=== PATIENT | female | born 1950 | race Caucasian/White ===

== ENCOUNTER 2016-12-27 10:48 | Emergency (ER) | payer MEDICARE, MEDICAID ==
[~2016-12-27] VITALS: Ht 172.7 cm; Wt 71.0 kg
[~2016-12-27 10:48] MED LIST: FLUT1AER PO; PARO10TA89 PO
[2016-12-27 11:02] LABS: GLUCOSE,POINT OF CARE 125 MG/DL (70-110)
[2016-12-27 11:25] VITALS: BP 158/95
[2017-01-01] MEDS ORDERED: AZIT250T6 PO (18:52)
[2017-01-01] MEDS ORDERED: METO50TA12 PO (18:52)
== END 2016-12-27 13:26 | disposition home or self-care (01) ==
LOC: EMS 10:51
DX: F25.9 Schizoaffective disorder, unspecified (principal); E11.9 Type 2 diabetes mellitus without complications; I10 Essential (primary) hypertension; I25.2 Old myocardial infarction; F32.9 Major depressive disorder, single episode, unspecified; F17.210 Nicotine dependence, cigarettes, uncomplicated; Z86.73 Personal history of transient ischemic attack (TIA), and cerebral infarction without residual deficits; Z88.8 Allergy status to other drugs, medicaments and biological substances; Z88.5 Allergy status to narcotic agent; Z91.013 Allergy to seafood
CPT/HCPCS: 82962; 99284

== ENCOUNTER 2016-12-27 13:24 | Emergency (ER) | payer MEDICARE, MEDICAID ==
[~2016-12-27] VITALS: Ht 172.7 cm; Wt 76.4 kg
[2016-12-27 13:34] VITALS: BP 138/99
[2016-12-27] MEDS ORDERED: HydrOXYzine PAMOATE 25 MG CAPSULE PO ONE (16:15)
[2017-01-01] MEDS ORDERED: METO50TA12 PO (18:52)
[2017-01-01] MEDS ORDERED: AZIT250T6 PO (18:52)
== END 2016-12-27 17:28 | disposition home or self-care (01) ==
LOC: EMS 13:26
DX: Z20.7 Contact with and (suspected) exposure to pediculosis, acariasis and other infestations (principal); F41.9 Anxiety disorder, unspecified; M79.7 Fibromyalgia; E11.9 Type 2 diabetes mellitus without complications; I10 Essential (primary) hypertension; I25.2 Old myocardial infarction; F17.210 Nicotine dependence, cigarettes, uncomplicated; Z59.0 Homelessness; Z88.6 Allergy status to analgesic agent; Z91.013 Allergy to seafood; Z88.8 Allergy status to other drugs, medicaments and biological substances; Z86.73 Personal history of transient ischemic attack (TIA), and cerebral infarction without residual deficits
CPT/HCPCS: 99282

== ENCOUNTER 2017-01-01 13:45 | Inpatient (IN) | payer MEDICARE, MEDICAID ==
[~2017-01-01] VITALS: Ht 172.7 cm; Wt 62.4 kg
[2017-01-01 15:18] VITALS: BP 134/76
[2017-01-01 18:34] VITALS: BP 122/71
[2017-01-01] MEDS: LORazepam 2 MG TABLET PO PRN (18:37)
[2017-01-01] MEDS ORDERED: RISP1 PO (18:52)
[2017-01-01] MEDS ORDERED: NITR.4 SL (18:52)
[2017-01-01] MEDS ORDERED: TRAZ150 PO (18:52)
[2017-01-01] MEDS ORDERED: MULT-1203 PO (18:52)
[2017-01-01] MEDS ORDERED: CITA10TA68 PO (18:52)
[2017-01-01] MEDS ORDERED: BIMA12.5OS OD (18:52)
[2017-01-01] MEDS ORDERED: ASPI-1182 PO (18:52)
[2017-01-01] MEDS ORDERED: AZIT250T9 PO (18:52)
[2017-01-01] MEDS ORDERED: ALPR0.5T8 PO (18:52)
[2017-01-01] MEDS ORDERED: HYDR-3110 PO (18:52)
[2017-01-01] MEDS ORDERED: IPRA4AER IH (18:52)
[2017-01-01] MEDS ORDERED: LANS30 PO (18:52)
[2017-01-01] MEDS ORDERED: BRIM15OS OD (18:52)
[2017-01-01] MEDS ORDERED: DEXA4 PO (18:52)
[2017-01-01] MEDS ORDERED: METO-558 PO (18:52)
[2017-01-01] MEDS ORDERED: LIDO700A15 TP (18:52)
[2017-01-01 19:17] LABS: GLUCOSE COMMENT 1 Doctor Notified; GLUCOSE,POINT OF CARE 105 MG/DL (70-110)
[2017-01-01] MEDS ORDERED: NITROGLYCERIN 0.4 MG SUBLINGUAL TABLET #25 SL PRN (20:45)
[2017-01-01] MEDS ORDERED: PETROLATUM,WHITE 71 GM JELLY TP PRN (20:45)
[2017-01-02 00:37] VITALS: BP 110/72
[2017-01-02] MEDS: LANSOPRAZOLE 30 MG CAPSULE PO SCH (06:19)
[2017-01-02] MEDS: ALBUTEROL SULFATE/IPRATROPIUM 100-20 MCG/SPRAY 4 GM INHALER IH SCH ×4 (08:27→20:39)
[2017-01-02 08:31] VITALS: BP 99/59
[2017-01-02] MEDS: ASPIRIN 81 MG CHEWABLE TABLET PO SCH (08:34)
[2017-01-02] MEDS: BRIMONIDINE TARTRATE 0.1% 5 ML OPHTHALMIC SOLUTION OD SCH ×3 (08:42→17:00)
[2017-01-02] MEDS: METOPROLOL TARTRATE 50 MG TABLET PO SCH ×2 (08:43→09:36)
[2017-01-02] MEDS: LIDOCAINE HCL 5% TRANSDERMAL PATCH TD SCH (08:43)
[2017-01-02 08:48] LABS: BASOPHILS # (AUTO) 0.03 K/uL (0.00-0.20); BASOPHILS % (AUTO) 0.5 % (0.0-2.0); EOSINOPHILS # (AUTO) 0.15 K/uL (0.00-0.70); EOSINOPHILS % (AUTO) 2.62 % (1.0-6.0); HEMATOCRIT 41.4 % (36-46); HEMOGLOBIN 13.7 g/dL (12.0-16.0); LYMPHOCYTES # (AUTO) 1.5 K/uL (1.0-4.8); LYMPHOCYTES % (AUTO) 26.1 % (22.0-44.0); MEAN CORPUSCULAR HEMOGLOBIN 28.2 pg (26.0-34.0); MEAN CORPUSCULAR HGB CONC 33.1 G/dL (31.0-37.0); MEAN CORPUSCULAR VOLUME 85 fL (80-100); MONOCYTES # (AUTO) 0.5 K/uL (0.1-1.0); NEUTROPHILS # (AUTO) 3.7 K/uL (1.8-7.7); NEUTROPHILS % (AUTO) 61.8 % (40.0-70.0); PLATELET COUNT (AUTO) 329 K/uL (150-450); RED BLOOD CELL COUNT(AUTO) 4.85 MIL/uL (4.00-5.20); RED CELL DISTRIBUTION WIDTH 13.5 % (11.5-14.5); WHITE BLOOD COUNT (AUTO) 5.9 K/uL (4.5-11.0)
[2017-01-02] MEDS ORDERED: NICOTINE 14 MG/24 HOUR PATCH TD SCH (09:00)
[2017-01-02] MEDS ORDERED: AZITHROMYCIN 250 MG TABLET PO ONE (09:00)
[2017-01-02] MEDS: CITALOPRAM HYDROBROMIDE 10 MG TABLET PO SCH (09:15)
[2017-01-02 09:30] VITALS: BP 128/88
[2017-01-02] MEDS: LORazepam 2 MG TABLET PO PRN ×2 (09:36→19:33)
[2017-01-02 09:41] LABS: ALANINE AMINOTRANSFERASE 18 U/L (12-78); ALBUMIN 3.1 g/dL (3.4-5.0); ANION GAP 8 mmol/L (8-16); ASPARTATE AMINOTRANSFERASE 13 U/L (15-37); BILIRUBIN,TOTAL 0.3 mg/dL (0.1-1.0); CALCIUM, TOTAL 8.7 mg/dL (8.8-10.5); CARBON DIOXIDE 26 mmol/L (22-29); CHLORIDE 108 mmol/L (98-107); CHOL/HDL RATIO 3.1 (3.9-5.7); CREATININE 0.63 mg/dL (0.60-1.30); GLOMERULAR FILTR. RATE CALC > 60 mL/min (>60); POTASSIUM 4.5 mmol/L (3.5-5.1); SODIUM SERUM 142 mmol/L (136-145); THYROID STIMULATING HORMONE 0.59 uIU/mL (0.36-3.74); UREA NITROGEN, BLOOD 10 mg/dL (7-18)
[2017-01-02 16:13] VITALS: BP 113/72
[2017-01-02] MEDS: ALBUTEROL SULFATE HFA 90 MCG/PUFF 8 GM INHALER IH PRN (19:12)
[2017-01-02 19:24] VITALS: BP 112/78
[2017-01-02] MEDS: TraMADol HCL 50 MG TABLET PO PRN (19:33)
[2017-01-02] MEDS: TraZODone HCL 150 MG TABLET PO SCH (20:40)
[2017-01-02] MEDS: -LIDODERM PATCH NOTE- MISC SCH ×2 (20:40)
[2017-01-02] MEDS: BIMATOPROST 0.01% 2.5 ML OPHTHALMIC SOLUTION OD SCH (20:42)
[2017-01-02] MEDS ORDERED: RisperiDONE 1 MG TABLET PO SCH (21:00)
[2017-01-03] MEDS: LANSOPRAZOLE 30 MG CAPSULE PO SCH (06:13)
[2017-01-03 06:35] VITALS: BP 102/51
[2017-01-03] MEDS ORDERED: BENZOCAINE/MENTHOL LOZENGE PO PRN (06:45)
[2017-01-03 08:15] VITALS: BP 98/63
[2017-01-03] MEDS: METOPROLOL TARTRATE 50 MG TABLET PO SCH (09:00)
[2017-01-03] MEDS: LIDOCAINE HCL 5% TRANSDERMAL PATCH TD SCH (09:00)
[2017-01-03] MEDS: BRIMONIDINE TARTRATE 0.1% 5 ML OPHTHALMIC SOLUTION OD SCH ×3 (09:00→16:38)
[2017-01-03] MEDS: CITALOPRAM HYDROBROMIDE 10 MG TABLET PO SCH (09:00)
[2017-01-03] MEDS: AZITHROMYCIN 250 MG TABLET PO SCH (09:01)
[2017-01-03] MEDS: ASPIRIN 81 MG CHEWABLE TABLET PO SCH (09:01)
[2017-01-03] MEDS: GuaiFENesin/D-METHORPHAN [SUGAR-FREE] 200-20MG/10 ML SYRUP UDCUP PO SCH ×3 (09:02→18:08)
[2017-01-03] MEDS: ALBUTEROL SULFATE/IPRATROPIUM 100-20 MCG/SPRAY 4 GM INHALER IH SCH ×4 (09:07→20:33)
[2017-01-03 14:35] VITALS: BP 100/74
[2017-01-03] MEDS: TraMADol HCL 50 MG TABLET PO PRN ×2 (14:38→19:34)
[2017-01-03] MEDS: LORazepam 2 MG TABLET PO PRN (15:59)
[2017-01-03 16:17] VITALS: BP 120/75
[2017-01-03 19:34] VITALS: BP 112/70
[2017-01-03] MEDS: TraZODone HCL 150 MG TABLET PO SCH (20:32)
[2017-01-03] MEDS: RisperiDONE 2 MG TABLET PO SCH (20:32)
[2017-01-03] MEDS: BIMATOPROST 0.01% 2.5 ML OPHTHALMIC SOLUTION OD SCH (20:33)
[2017-01-03] MEDS: -LIDODERM PATCH NOTE- MISC SCH ×2 (20:34)
[2017-01-04] VITALS (7 sets, daily range): BP systolic 100–113; BP diastolic 60–76
[2017-01-04] MEDS: GuaiFENesin/D-METHORPHAN [SUGAR-FREE] 200-20MG/10 ML SYRUP UDCUP PO SCH ×4 (06:15→18:02)
[2017-01-04] MEDS: LANSOPRAZOLE 30 MG CAPSULE PO SCH (06:15)
[2017-01-04] MEDS: TraMADol HCL 50 MG TABLET PO PRN ×3 (06:16→21:39)
[2017-01-04] MEDS: LORazepam 2 MG TABLET PO PRN ×2 (06:26→13:14)
[2017-01-04] MEDS: LIDOCAINE HCL 5% TRANSDERMAL PATCH TD SCH (09:00)
[2017-01-04] MEDS ORDERED: CITALOPRAM HYDROBROMIDE 10 MG TABLET PO SCH (09:00)
[2017-01-04] MEDS: METOPROLOL TARTRATE 25 MG TABLET PO SCH (09:00)
[2017-01-04] MEDS: BRIMONIDINE TARTRATE 0.1% 5 ML OPHTHALMIC SOLUTION OD SCH ×3 (09:00→16:48)
[2017-01-04] MEDS: ALBUTEROL SULFATE/IPRATROPIUM 100-20 MCG/SPRAY 4 GM INHALER IH SCH ×4 (09:55→20:37)
[2017-01-04] MEDS: ASPIRIN 81 MG CHEWABLE TABLET PO SCH (09:55)
[2017-01-04] MEDS: AZITHROMYCIN 250 MG TABLET PO SCH (09:56)
[2017-01-04 11:01] LABS: GLUCOSE,POINT OF CARE 95 MG/DL (70-110)
[2017-01-04] MEDS: RisperiDONE 2 MG TABLET PO SCH (20:38)
[2017-01-04] MEDS: -LIDODERM PATCH NOTE- MISC SCH ×2 (20:38)
[2017-01-04] MEDS: BIMATOPROST 0.01% 2.5 ML OPHTHALMIC SOLUTION OD SCH (20:38)
[2017-01-04] MEDS: TraZODone HCL 150 MG TABLET PO SCH (20:38)
[2017-01-05] MEDS: GuaiFENesin/D-METHORPHAN [SUGAR-FREE] 200-20MG/10 ML SYRUP UDCUP PO SCH ×4 (00:17→19:00)
[2017-01-05 01:33] VITALS: BP 100/61
[2017-01-05 05:55] VITALS: BP 106/68
[2017-01-05] MEDS: LANSOPRAZOLE 30 MG CAPSULE PO SCH (06:20)
[2017-01-05] MEDS: BRIMONIDINE TARTRATE 0.1% 5 ML OPHTHALMIC SOLUTION OD SCH ×3 (09:00→17:00)
[2017-01-05] MEDS: METOPROLOL TARTRATE 25 MG TABLET PO SCH (09:00)
[2017-01-05] MEDS: LIDOCAINE HCL 5% TRANSDERMAL PATCH TD SCH (09:00)
[2017-01-05 09:08] VITALS: BP 101/65
[2017-01-05] MEDS: AZITHROMYCIN 250 MG TABLET PO SCH (09:23)
[2017-01-05] MEDS: ASPIRIN 81 MG CHEWABLE TABLET PO SCH (09:23)
[2017-01-05] MEDS: ALBUTEROL SULFATE/IPRATROPIUM 100-20 MCG/SPRAY 4 GM INHALER IH SCH ×4 (09:24→20:22)
[2017-01-05] MEDS: CITALOPRAM HYDROBROMIDE 20 MG TABLET PO SCH (09:24)
[2017-01-05 09:35] VITALS: BP 113/76
[2017-01-05] MEDS: ALBUTEROL SULFATE HFA 90 MCG/PUFF 8 GM INHALER IH PRN (09:41)
[2017-01-05] MEDS: TraMADol HCL 50 MG TABLET PO PRN (16:32)
[2017-01-05 16:49] VITALS: BP 108/60
[2017-01-05] MEDS: LORazepam 2 MG TABLET PO PRN (19:50)
[2017-01-05] MEDS: TraZODone HCL 150 MG TABLET PO SCH (20:17)
[2017-01-05] MEDS: RisperiDONE 2 MG TABLET PO SCH (20:17)
[2017-01-05] MEDS: BIMATOPROST 0.01% 2.5 ML OPHTHALMIC SOLUTION OD SCH (20:25)
[2017-01-05] MEDS: -LIDODERM PATCH NOTE- MISC SCH ×2 (20:25)
[2017-01-05] MEDS ORDERED: IPRATROPIUM BROMIDE 0.5 MG/2.5 ML NEB SOLUTION NEB PRN (23:00)
[2017-01-06] MEDS: GuaiFENesin/D-METHORPHAN [SUGAR-FREE] 200-20MG/10 ML SYRUP UDCUP PO SCH ×3 (00:45→06:00)
[2017-01-06] MEDS: LANSOPRAZOLE 30 MG CAPSULE PO SCH (06:33)
[2017-01-06] MEDS: BRIMONIDINE TARTRATE 0.1% 5 ML OPHTHALMIC SOLUTION OD SCH (09:00)
[2017-01-06] MEDS: LIDOCAINE HCL 5% TRANSDERMAL PATCH TD SCH (09:00)
[2017-01-06] MEDS: CITALOPRAM HYDROBROMIDE 20 MG TABLET PO SCH (09:00)
[2017-01-06] MEDS: ASPIRIN 81 MG CHEWABLE TABLET PO SCH (09:14)
[2017-01-06] MEDS: ALBUTEROL SULFATE/IPRATROPIUM 100-20 MCG/SPRAY 4 GM INHALER IH SCH ×4 (09:19→20:01)
[2017-01-06] MEDS: AZITHROMYCIN 250 MG TABLET PO SCH (09:20)
[2017-01-06] MEDS: LORazepam 2 MG TABLET PO PRN (09:43)
[2017-01-06 09:44] VITALS: BP 109/67
[2017-01-06] MEDS: TraMADol HCL 50 MG TABLET PO PRN ×2 (09:44→17:07)
[2017-01-06] MEDS ORDERED: GuaiFENesin/D-METHORPHAN [SUGAR-FREE] 200-20MG/10 ML SYRUP UDCUP PO PRN (12:00)
[2017-01-06] MEDS ORDERED: ACETAMINOPHEN 325 MG TABLET PO PRN (12:00)
[2017-01-06 16:00] VITALS: BP 117/66
[2017-01-06] MEDS: RisperiDONE 2 MG TABLET PO SCH (20:01)
[2017-01-06] MEDS: TraZODone HCL 150 MG TABLET PO SCH (20:01)
[2017-01-06] MEDS: ZOLPIDEM TARTRATE 10 MG TABLET PO PRN (20:02)
[2017-01-07] MEDS: LORazepam 2 MG TABLET PO PRN ×2 (05:46→11:13)
[2017-01-07 06:22] VITALS: BP 111/66
[2017-01-07] MEDS: LANSOPRAZOLE 30 MG CAPSULE PO SCH (07:07)
[2017-01-07] MEDS: MONTELUKAST SODIUM 10 MG TABLET PO SCH (09:15)
[2017-01-07] MEDS: CITALOPRAM HYDROBROMIDE 20 MG TABLET PO SCH (09:15)
[2017-01-07] MEDS: ASPIRIN 81 MG CHEWABLE TABLET PO SCH (09:15)
[2017-01-07] MEDS: ALBUTEROL SULFATE/IPRATROPIUM 100-20 MCG/SPRAY 4 GM INHALER IH SCH ×4 (09:15→20:19)
[2017-01-07 11:22] VITALS: BP 90/53
[2017-01-07] MEDS ORDERED: BUDESONIDE 0.5 MG/2 ML NEB SOLUTION NEB SCH (16:30)
[2017-01-07 18:00] VITALS: BP 104/74
[2017-01-07] MEDS: IPRATROPIUM BROMIDE 0.5 MG/2.5 ML NEB SOLUTION NEB SCH ×2 (19:30→21:42)
[2017-01-07] MEDS: ALBUTEROL SULFATE 2.5 MG/0.5 ML NEB SOLUTION NEB SCH ×2 (19:30→21:42)
[2017-01-07] MEDS: RisperiDONE 2 MG TABLET PO SCH (20:18)
[2017-01-07] MEDS: TraZODone HCL 150 MG TABLET PO SCH (20:18)
[2017-01-07] MEDS: BUDESONIDE 0.5 MG/2 ML NEB SOLUTION NEB SCH (21:42)
[2017-01-07 23:30] VITALS: BP 99/61
[2017-01-07] MEDS: ZOLPIDEM TARTRATE 10 MG TABLET PO PRN (23:39)
[2017-01-08] MEDS: LANSOPRAZOLE 30 MG CAPSULE PO SCH (06:45)
[2017-01-08 09:15] VITALS: BP 87/62
[2017-01-08] MEDS: CITALOPRAM HYDROBROMIDE 20 MG TABLET PO SCH (09:47)
[2017-01-08] MEDS: ASPIRIN 81 MG CHEWABLE TABLET PO SCH (09:47)
[2017-01-08] MEDS: MONTELUKAST SODIUM 10 MG TABLET PO SCH (09:47)
[2017-01-08] MEDS: ALBUTEROL SULFATE/IPRATROPIUM 100-20 MCG/SPRAY 4 GM INHALER IH SCH ×4 (09:47→21:08)
[2017-01-08] MEDS: IPRATROPIUM BROMIDE 0.5 MG/2.5 ML NEB SOLUTION NEB SCH ×4 (09:48→21:00)
[2017-01-08] MEDS: BUDESONIDE 0.5 MG/2 ML NEB SOLUTION NEB SCH ×2 (09:48→21:00)
[2017-01-08] MEDS: ALBUTEROL SULFATE 2.5 MG/0.5 ML NEB SOLUTION NEB SCH ×4 (09:49→21:00)
[2017-01-08] MEDS: IBUPROFEN 600 MG TABLET PO PRN (09:51)
[2017-01-08 10:50] VITALS: BP 106/67
[2017-01-08] MEDS: DiphenhydrAMINE HCL 25 MG CAPSULE PO PRN (12:39)
[2017-01-08] MEDS: LORazepam 2 MG TABLET PO PRN (12:40)
[2017-01-08] MEDS ORDERED: MethylPREDNISolone SOD SUCC 40 MG/ML VIAL IVP SCH (18:00)
[2017-01-08] MEDS: TraZODone HCL 150 MG TABLET PO SCH (20:37)
[2017-01-08] MEDS: RisperiDONE 2 MG TABLET PO SCH (20:37)
[2017-01-08] MEDS ORDERED: PERMETHRIN 5% 60 GM CREAM TP ONE (21:00)
[2017-01-08 21:16] VITALS: BP 105/66
[2017-01-09] MEDS: LANSOPRAZOLE 30 MG CAPSULE PO SCH (06:40)
[2017-01-09 08:14] VITALS: BP 111/72
[2017-01-09] MEDS ORDERED: PERMETHRIN 5% 60 GM CREAM TP ONE ×2 (09:00→21:00)
[2017-01-09] MEDS: CITALOPRAM HYDROBROMIDE 20 MG TABLET PO SCH (09:27)
[2017-01-09] MEDS: LORazepam 2 MG TABLET PO PRN ×2 (09:27→20:20)
[2017-01-09] MEDS: ASPIRIN 81 MG CHEWABLE TABLET PO SCH (09:27)
[2017-01-09] MEDS: MONTELUKAST SODIUM 10 MG TABLET PO SCH (09:27)
[2017-01-09] MEDS: ALBUTEROL SULFATE/IPRATROPIUM 100-20 MCG/SPRAY 4 GM INHALER IH SCH ×4 (09:28→20:19)
[2017-01-09] MEDS: LORATADINE 10 MG TABLET PO SCH (09:28)
[2017-01-09] MEDS: IPRATROPIUM BROMIDE 0.5 MG/2.5 ML NEB SOLUTION NEB SCH ×4 (09:39→20:46)
[2017-01-09] MEDS: ALBUTEROL SULFATE 2.5 MG/0.5 ML NEB SOLUTION NEB SCH ×4 (09:39→20:46)
[2017-01-09] MEDS: BUDESONIDE 0.5 MG/2 ML NEB SOLUTION NEB SCH ×2 (09:39→20:46)
[2017-01-09] MEDS: OXYMETAZOLINE HCL 0.05% 15 ML NASAL SPRAY NASAL SCH ×2 (11:00→17:02)
[2017-01-09] MEDS: ALBUTEROL SULFATE 2.5 MG/0.5 ML NEB SOLUTION NEB PRN (16:05)
[2017-01-09] MEDS: TraMADol HCL 50 MG TABLET PO PRN (17:01)
[2017-01-09 17:03] VITALS: BP 119/77
[2017-01-09] MEDS: DiphenhydrAMINE HCL 25 MG CAPSULE PO PRN (20:19)
[2017-01-09] MEDS: RisperiDONE 2 MG TABLET PO SCH (20:20)
[2017-01-09] MEDS: TraZODone HCL 150 MG TABLET PO SCH (20:20)
[2017-01-10 06:12] LABS: GLUCOSE,POINT OF CARE 104 MG/DL (70-110)
[2017-01-10] MEDS: LANSOPRAZOLE 30 MG CAPSULE PO SCH (06:42)
[2017-01-10 08:48] VITALS: BP 95/59
[2017-01-10] MEDS: MONTELUKAST SODIUM 10 MG TABLET PO SCH (09:02)
[2017-01-10] MEDS: ASPIRIN 81 MG CHEWABLE TABLET PO SCH (09:02)
[2017-01-10] MEDS: DiphenhydrAMINE HCL 25 MG CAPSULE PO PRN (09:02)
[2017-01-10] MEDS: LORATADINE 10 MG TABLET PO SCH (09:02)
[2017-01-10] MEDS: PARoxetine HCL 20 MG TABLET PO SCH (09:07)
[2017-01-10] MEDS: OXYMETAZOLINE HCL 0.05% 15 ML NASAL SPRAY NASAL SCH ×2 (09:08→16:29)
[2017-01-10] MEDS: ALBUTEROL SULFATE/IPRATROPIUM 100-20 MCG/SPRAY 4 GM INHALER IH SCH ×4 (09:08→20:00)
[2017-01-10] MEDS: BUDESONIDE 0.5 MG/2 ML NEB SOLUTION NEB SCH ×2 (10:01→21:38)
[2017-01-10] MEDS: ALBUTEROL SULFATE 2.5 MG/0.5 ML NEB SOLUTION NEB SCH ×4 (10:01→21:37)
[2017-01-10] MEDS: IPRATROPIUM BROMIDE 0.5 MG/2.5 ML NEB SOLUTION NEB SCH ×4 (10:01→21:37)
[2017-01-10] MEDS: LORazepam 2 MG TABLET PO PRN ×2 (13:52→19:43)
[2017-01-10 16:15] VITALS: BP 105/67
[2017-01-10 16:35] VITALS: BP 105/67
[2017-01-10] MEDS: TraMADol HCL 50 MG TABLET PO PRN (16:35)
[2017-01-10 17:35] VITALS: BP 109/62
[2017-01-10] MEDS: RisperiDONE 2 MG TABLET PO SCH (20:00)
[2017-01-10] MEDS: TraZODone HCL 150 MG TABLET PO SCH (20:00)
[2017-01-11] MEDS: LANSOPRAZOLE 30 MG CAPSULE PO SCH (06:49)
[2017-01-11] MEDS: LORATADINE 10 MG TABLET PO SCH (08:39)
[2017-01-11] MEDS: ASPIRIN 81 MG CHEWABLE TABLET PO SCH (08:39)
[2017-01-11] MEDS: PARoxetine HCL 20 MG TABLET PO SCH (08:39)
[2017-01-11] MEDS: ALBUTEROL SULFATE/IPRATROPIUM 100-20 MCG/SPRAY 4 GM INHALER IH SCH ×4 (08:40→20:25)
[2017-01-11] MEDS: MONTELUKAST SODIUM 10 MG TABLET PO SCH (08:40)
[2017-01-11] MEDS: OXYMETAZOLINE HCL 0.05% 15 ML NASAL SPRAY NASAL SCH ×2 (08:41→16:29)
[2017-01-11] MEDS: LORazepam 2 MG TABLET PO PRN ×3 (08:48→20:46)
[2017-01-11] MEDS: ALBUTEROL SULFATE 2.5 MG/0.5 ML NEB SOLUTION NEB SCH ×4 (09:05→21:20)
[2017-01-11] MEDS: BUDESONIDE 0.5 MG/2 ML NEB SOLUTION NEB SCH ×2 (09:05→21:36)
[2017-01-11] MEDS: IPRATROPIUM BROMIDE 0.5 MG/2.5 ML NEB SOLUTION NEB SCH ×4 (09:05→21:20)
[2017-01-11 10:31] VITALS: BP 100/67
[2017-01-11 11:21] VITALS: BP 112/70
[2017-01-11] MEDS: TraMADol HCL 50 MG TABLET PO PRN (11:21)
[2017-01-11 12:21] VITALS: BP 110/71
[2017-01-11] MEDS: RisperiDONE 2 MG TABLET PO SCH (20:25)
[2017-01-11] MEDS: TraZODone HCL 150 MG TABLET PO SCH (20:25)
[2017-01-11 20:45] VITALS: BP 113/65
[2017-01-12 03:00] VITALS: BP 115/74
[2017-01-12] MEDS: LANSOPRAZOLE 30 MG CAPSULE PO SCH (07:05)
[2017-01-12] MEDS: IPRATROPIUM BROMIDE 0.5 MG/2.5 ML NEB SOLUTION NEB SCH ×4 (09:00→21:00)
[2017-01-12] MEDS: BUDESONIDE 0.5 MG/2 ML NEB SOLUTION NEB SCH ×2 (09:00→21:37)
[2017-01-12] MEDS: ALBUTEROL SULFATE 2.5 MG/0.5 ML NEB SOLUTION NEB SCH ×4 (09:00→21:00)
[2017-01-12] MEDS: OXYMETAZOLINE HCL 0.05% 15 ML NASAL SPRAY NASAL SCH ×2 (09:21→16:24)
[2017-01-12] MEDS: ALBUTEROL SULFATE/IPRATROPIUM 100-20 MCG/SPRAY 4 GM INHALER IH SCH ×4 (09:21→20:56)
[2017-01-12] MEDS: ASPIRIN 81 MG CHEWABLE TABLET PO SCH (09:22)
[2017-01-12] MEDS: PARoxetine HCL 20 MG TABLET PO SCH (09:22)
[2017-01-12] MEDS: MONTELUKAST SODIUM 10 MG TABLET PO SCH (09:22)
[2017-01-12] MEDS: LORATADINE 10 MG TABLET PO SCH (09:22)
[2017-01-12] MEDS: LORazepam 2 MG TABLET PO PRN ×2 (09:28→15:35)
[2017-01-12 09:57] VITALS: BP 112/75
[2017-01-12 11:55] VITALS: BP 95/69
[2017-01-12] MEDS: TraMADol HCL 50 MG TABLET PO PRN (11:55)
[2017-01-12] MEDS ORDERED: ONDANSETRON HCL 4 MG TABLET PO PRN (12:00)
[2017-01-12 19:26] VITALS: BP 104/62
[2017-01-12] MEDS: TraZODone HCL 150 MG TABLET PO SCH (20:57)
[2017-01-12] MEDS: RisperiDONE 2 MG TABLET PO SCH (21:00)
[2017-01-13] MEDS: LORazepam 2 MG TABLET PO PRN ×2 (06:00→14:13)
[2017-01-13] MEDS: ALBUTEROL SULFATE HFA 90 MCG/PUFF 8 GM INHALER IH PRN (06:09)
[2017-01-13] MEDS: LANSOPRAZOLE 30 MG CAPSULE PO SCH (07:07)
[2017-01-13 08:50] VITALS: BP 111/66
[2017-01-13] MEDS: ALBUTEROL SULFATE 2.5 MG/0.5 ML NEB SOLUTION NEB SCH ×4 (09:05→21:00)
[2017-01-13] MEDS: IPRATROPIUM BROMIDE 0.5 MG/2.5 ML NEB SOLUTION NEB SCH ×4 (09:06→21:00)
[2017-01-13] MEDS: BUDESONIDE 0.5 MG/2 ML NEB SOLUTION NEB SCH ×2 (09:06→21:19)
[2017-01-13] MEDS: ALBUTEROL SULFATE/IPRATROPIUM 100-20 MCG/SPRAY 4 GM INHALER IH SCH ×4 (09:17→20:47)
[2017-01-13] MEDS: ASPIRIN 81 MG CHEWABLE TABLET PO SCH (09:18)
[2017-01-13] MEDS: MONTELUKAST SODIUM 10 MG TABLET PO SCH (09:18)
[2017-01-13] MEDS: TraZODone HCL 150 MG TABLET PO SCH (09:18)
[2017-01-13] MEDS: LORATADINE 10 MG TABLET PO SCH (09:18)
[2017-01-13] MEDS: PARoxetine HCL 20 MG TABLET PO SCH (09:18)
[2017-01-13] MEDS: OXYMETAZOLINE HCL 0.05% 15 ML NASAL SPRAY NASAL SCH ×2 (09:18→16:19)
[2017-01-13] MEDS: IBUPROFEN 600 MG TABLET PO PRN (16:34)
[2017-01-13 16:35] VITALS: BP 107/72
[2017-01-13] MEDS: RisperiDONE 2 MG TABLET PO SCH (20:52)
[2017-01-13] MEDS: ZOLPIDEM TARTRATE 10 MG TABLET PO PRN (22:01)
[2017-01-14 05:25] VITALS: BP 111/61
[2017-01-14] MEDS: LORazepam 2 MG TABLET PO PRN ×2 (05:30→10:04)
[2017-01-14] MEDS: TraMADol HCL 50 MG TABLET PO PRN ×2 (05:30→14:23)
[2017-01-14] MEDS: LANSOPRAZOLE 30 MG CAPSULE PO SCH (07:25)
[2017-01-14 08:16] VITALS: BP 103/69
[2017-01-14] MEDS: PARoxetine HCL 20 MG TABLET PO SCH (08:41)
[2017-01-14] MEDS: ASPIRIN 81 MG CHEWABLE TABLET PO SCH (08:41)
[2017-01-14] MEDS: MONTELUKAST SODIUM 10 MG TABLET PO SCH (08:41)
[2017-01-14] MEDS: LORATADINE 10 MG TABLET PO SCH (08:42)
[2017-01-14] MEDS: OXYMETAZOLINE HCL 0.05% 15 ML NASAL SPRAY NASAL SCH ×2 (08:48→18:51)
[2017-01-14] MEDS: ALBUTEROL SULFATE/IPRATROPIUM 100-20 MCG/SPRAY 4 GM INHALER IH SCH ×4 (08:48→20:11)
[2017-01-14] MEDS: IPRATROPIUM BROMIDE 0.5 MG/2.5 ML NEB SOLUTION NEB SCH ×4 (08:57→19:48)
[2017-01-14] MEDS: BUDESONIDE 0.5 MG/2 ML NEB SOLUTION NEB SCH ×2 (08:57→19:48)
[2017-01-14] MEDS: ALBUTEROL SULFATE 2.5 MG/0.5 ML NEB SOLUTION NEB SCH ×4 (08:57→19:48)
[2017-01-14 14:23] VITALS: BP 105/72
[2017-01-14 18:00] VITALS: BP 104/63
[2017-01-14] MEDS: TraZODone HCL 150 MG TABLET PO SCH (20:09)
[2017-01-14] MEDS ORDERED: HALOPERIDOL 5 MG TABLET PO SCH (21:00)
[2017-01-14] MEDS: ALBUTEROL SULFATE HFA 90 MCG/PUFF 8 GM INHALER IH PRN (22:45)
[2017-01-15] MEDS: LANSOPRAZOLE 30 MG CAPSULE PO SCH (07:07)
[2017-01-15] MEDS: TraMADol HCL 50 MG TABLET PO PRN (07:15)
[2017-01-15 08:02] VITALS: BP 120/77
[2017-01-15] MEDS: ALBUTEROL SULFATE/IPRATROPIUM 100-20 MCG/SPRAY 4 GM INHALER IH SCH ×4 (08:41→21:00)
[2017-01-15] MEDS: OXYMETAZOLINE HCL 0.05% 15 ML NASAL SPRAY NASAL SCH ×2 (08:42→16:31)
[2017-01-15] MEDS: ASPIRIN 81 MG CHEWABLE TABLET PO SCH (08:42)
[2017-01-15] MEDS: LORATADINE 10 MG TABLET PO SCH (08:42)
[2017-01-15] MEDS: PARoxetine HCL 20 MG TABLET PO SCH (08:43)
[2017-01-15] MEDS: MONTELUKAST SODIUM 10 MG TABLET PO SCH (08:43)
[2017-01-15] MEDS: IPRATROPIUM BROMIDE 0.5 MG/2.5 ML NEB SOLUTION NEB SCH (09:00)
[2017-01-15] MEDS: ALBUTEROL SULFATE 2.5 MG/0.5 ML NEB SOLUTION NEB SCH (09:00)
[2017-01-15] MEDS: LORazepam 2 MG TABLET PO PRN (09:21)
[2017-01-15] MEDS: BUDESONIDE 0.5 MG/2 ML NEB SOLUTION NEB SCH ×2 (10:55→21:21)
[2017-01-15] MEDS: TraZODone HCL 150 MG TABLET PO SCH (20:20)
[2017-01-15] MEDS ORDERED: HALOPERIDOL 10 MG TABLET PO SCH (21:00)
[2017-01-15 22:06] VITALS: BP 101/62
[2017-01-16] MEDS: LANSOPRAZOLE 30 MG CAPSULE PO SCH (06:30)
[2017-01-16] MEDS: BUDESONIDE 0.5 MG/2 ML NEB SOLUTION NEB SCH (09:03)
[2017-01-16] MEDS: ALBUTEROL SULFATE 2.5 MG/0.5 ML NEB SOLUTION NEB PRN (09:03)
[2017-01-16 09:04] VITALS: BP 106/62
[2017-01-16] MEDS: MONTELUKAST SODIUM 10 MG TABLET PO SCH (09:04)
[2017-01-16] MEDS: PARoxetine HCL 20 MG TABLET PO SCH (09:04)
[2017-01-16] MEDS: OXYMETAZOLINE HCL 0.05% 15 ML NASAL SPRAY NASAL SCH (09:05)
[2017-01-16] MEDS: LORATADINE 10 MG TABLET PO SCH (09:05)
[2017-01-16] MEDS: ASPIRIN 81 MG CHEWABLE TABLET PO SCH (09:05)
[2017-01-16] MEDS: ALBUTEROL SULFATE/IPRATROPIUM 100-20 MCG/SPRAY 4 GM INHALER IH SCH ×2 (09:20→13:19)
[2017-01-16] MEDS: TraMADol HCL 50 MG TABLET PO PRN (09:22)
[2017-01-16 10:33] VITALS: BP 102/59
[2017-01-16] MEDS ORDERED: PARO20TA24 PO (13:03)
[2017-01-16] MEDS ORDERED: HALO10 PO (13:04)
[2017-01-16] MEDS ORDERED: BUDE0.5A3 NEB (13:07)
[2017-01-16] MEDS ORDERED: OXYM-30 NASAL (13:10)
[2017-01-16] MEDS ORDERED: MONT10TA21 PO (13:11)
== END 2017-01-16 16:45 | disposition home or self-care (01) | DRG 885 ==
LOC: B2X 16:47 → 3EX 01-05 17:30
PROVIDERS: ADMIT Psychiatry & Neurology Child & Adolescent Psychiatry; ATTEND Psychiatry & Neurology Child & Adolescent Psychiatry
DX: F33.3 Major depressive disorder, recurrent, severe with psychotic symptoms (principal); R45.851 Suicidal ideations; J44.9 Chronic obstructive pulmonary disease, unspecified; Z91.19 Patient's noncompliance with other medical treatment and regimen; F60.9 Personality disorder, unspecified; K29.70 Gastritis, unspecified, without bleeding; I10 Essential (primary) hypertension; F17.210 Nicotine dependence, cigarettes, uncomplicated; F12.90 Cannabis use, unspecified, uncomplicated; J20.9 Acute bronchitis, unspecified; M19.90 Unspecified osteoarthritis, unspecified site; M54.2 Cervicalgia; J30.9 Allergic rhinitis, unspecified; K21.9 Gastro-esophageal reflux disease without esophagitis; K59.00 Constipation, unspecified; R09.02 Hypoxemia; Z85.118 Personal history of other malignant neoplasm of bronchus and lung; Z86.73 Personal history of transient ischemic attack (TIA), and cerebral infarction without residual deficits; Z87.01 Personal history of pneumonia (recurrent); Z88.8 Allergy status to other drugs, medicaments and biological substances; Z90.710 Acquired absence of both cervix and uterus; Z72.89 Other problems related to lifestyle; Z88.6 Allergy status to analgesic agent; Z63.9 Problem related to primary support group, unspecified; Z91.013 Allergy to seafood; Z71.6 Tobacco abuse counseling
CPT/HCPCS: 71020; 71250; 82962; 84145; 84439; 84443; 93306; 94640; J2920; J3535; Q0162